=== PATIENT | male | born 1965 | race African-American/Black ===

== ENCOUNTER 2020-02-07 13:36 | Outpatient (REF) | payer OTHER, SELFPAY ==
[2020-02-07 16:40] LABS: MANUAL DIFF FLAG NO
[2020-02-07 16:44] LABS: Basophils Percent Auto 0.7 % (0-2); Eosinophils Absolute Auto 0.1 X10*3/uL (0.0-0.4); Eosinophils Percent Auto 1.9 % (0-4); Hematocrit 45.9 % (42-52); Hemoglobin 15.4 g/dl (14.0-18.0); Imm Gran Abs Auto 0.01 X10*3/uL (0.00-0.03); Imm Gran Pct Auto 0.2 % (0.0-0.4); Lymphocytes Absolute Auto 1.6 X10*3/uL (1.2-4.9); Lymphocytes Percent Auto 37.9 % (20-40); Mean Corpuscular HGB Conc 33.6 g/dl (31.0-36.0); Mean Corpuscular Volume 92.5 fL (80-98); Monocytes Absolute Auto 0.3 X10*3/uL (0.1-1.2); Monocytes Percent Auto 7.6 % (2-11); Neutrophils Absolute Auto 2.2 X10*3/uL (2.0-8.3); Neutrophils Percent Auto 51.7 % (45-73); Platelet Count 211 X10*3/uL (160-400); Red Blood Count 4.96 X10*6/uL (4.60-5.80); Red Cell Distribution Width 12.1 % (11.0-16.0); White Blood Count 4.2 X10*3/uL (4.8-10.8)
[2020-02-07 17:29] LABS: TSH reflex Free T4 1.14 mIU/mL (0.32-4.0)
== END 2020-02-07 13:37 | disposition home or self-care (01) ==
LOC: HO.HMGCLDS 13:36
PROVIDERS: PCP Internal Medicine; Visit Provider Internal Medicine
DX: G43.909 Migraine, unspecified, not intractable, without status migrainosus (principal)
CPT/HCPCS: 36415; 84443; 85025

== ENCOUNTER 2021-04-16 10:56 | Outpatient (REF) | payer OTHER, SELFPAY ==
[2021-04-16 14:31] LABS: Alanine Aminotransferase 47 U/L (0-40); Anion Gap 12 (12-20); Aspartate Amino Transferase 26 U/L (5-37); Blood Urea Nitrogen 10 mg/dL (9-16); Calcium 9.6 mg/dL (8.4-10.2); Carbon Dioxide 27 mmol/L (22-29); Chloride 107 mmol/L (96-108); Cholesterol 238 mg/dL; Estimated Glomerular Filt Rate > 60; Glucose Fasting 93 mg/dL (60-99); HDL Cholesterol 40 mg/dL; LDL Cholesterol Calculated 175 mg/dl; Potassium 4.3 mmol/L (3.3-5.1); Sodium 142 mmol/L (135-145); Triglycerides 119 mg/dL
[2021-04-16 14:48] LABS: PSA,Total (Free>4and<10) 0.93 ng/mL (0.00-4.00)
== END 2021-04-16 10:57 | disposition home or self-care (01) ==
LOC: HO.HMGCLDS 10:56
PROVIDERS: PCP Internal Medicine; Visit Provider Internal Medicine
DX: Z00.00 Encounter for general adult medical examination without abnormal findings (principal); E78.5 Hyperlipidemia, unspecified; Z12.5 Encounter for screening for malignant neoplasm of prostate
CPT/HCPCS: 36415; 80048; 80061; 84153; 84450; 84460

== ENCOUNTER 2021-09-13 09:21 | Outpatient (REF) | payer OTHER, SELFPAY ==
[2021-09-13 12:07] LABS: Alanine Aminotransferase 55 U/L (0-40); Aspartate Amino Transferase 36 U/L (5-37); Cholesterol 217 mg/dL; HDL Cholesterol 43 mg/dL; LDL Cholesterol Calculated 162 mg/dl; Triglycerides 62 mg/dL
== END 2021-09-13 09:22 | disposition home or self-care (01) ==
LOC: HO.HMGCLDS 09:21
PROVIDERS: PCP Internal Medicine; Visit Provider Internal Medicine
DX: E78.5 Hyperlipidemia, unspecified (principal)
CPT/HCPCS: 36415; 80061; 84450; 84460

== ENCOUNTER 2022-01-03 09:30 | Outpatient (REF) | payer OTHER, SELFPAY ==
[2022-01-03 11:56] LABS: Alanine Aminotransferase 42 U/L (0-40); Aspartate Amino Transferase 39 U/L (5-37); Cholesterol 201 mg/dL; HDL Cholesterol 39 mg/dL; LDL Cholesterol Calculated 151 mg/dl; Triglycerides 57 mg/dL
== END 2022-01-03 09:31 | disposition home or self-care (01) ==
LOC: HO.HMGCLDS 09:30
PROVIDERS: PCP Internal Medicine; Visit Provider Internal Medicine
DX: E78.5 Hyperlipidemia, unspecified (principal)
CPT/HCPCS: 36415; 80061; 84450; 84460

== ENCOUNTER 2022-06-07 09:32 | Outpatient (REF) | payer OTHER, SELFPAY ==
[2022-06-07 10:47] LABS: Alanine Aminotransferase 34 U/L (0-40); Anion Gap 12 (12-20); Aspartate Amino Transferase 26 U/L (5-37); Blood Urea Nitrogen 8 mg/dL (9-16); Calcium 9.4 mg/dL (8.4-10.2); Carbon Dioxide 27 mmol/L (22-29); Chloride 108 mmol/L (96-108); Cholesterol 210 mg/dL; Estimated Glomerular Filt Rate > 60; Glucose Fasting 93 mg/dL (60-99); HDL Cholesterol 46 mg/dL; LDL Cholesterol Calculated 153 mg/dl; Potassium 4.4 mmol/L (3.3-5.1); Sodium 143 mmol/L (135-145); Triglycerides 59 mg/dL
[2022-06-07 10:56] LABS: PSA,Total (Free>4and<10) 1.17 ng/mL (0.00-4.00); Vitamin D 25-OH Total 14.2 ng/mL (>30)
== END 2022-06-07 09:33 | disposition home or self-care (01) ==
LOC: HO.LAB 09:32
PROVIDERS: PCP Internal Medicine; Visit Provider Internal Medicine
DX: Z00.01 Encounter for general adult medical examination with abnormal findings (principal); E78.5 Hyperlipidemia, unspecified; J30.2 Other seasonal allergic rhinitis; Z12.5 Encounter for screening for malignant neoplasm of prostate; Z79.899 Other long term (current) drug therapy
CPT/HCPCS: 36415; 80048; 80061; 82306; 84153; 84450; 84460

== ENCOUNTER 2022-07-04 09:18 | Outpatient (REF) | payer OTHER, SELFPAY ==
[2022-07-04 09:46] LABS: MANUAL DIFF FLAG NO
[2022-07-04 11:02] LABS: Basophils Percent Auto 0.8 % (0-2); Eosinophils Absolute Auto 0.1 X10*3/uL (0.0-0.4); Eosinophils Percent Auto 2.3 % (0-4); Hematocrit 48.1 % (42.0-52.0); Imm Gran Abs Auto 0.01 X10*3/uL (0.00-0.03); Imm Gran Pct Auto 0.2 % (0.0-0.4); Lymphocytes Absolute Auto 1.9 X10*3/uL (1.2-4.9); Lymphocytes Percent Auto 35.8 % (20-40); Mean Corpuscular HGB Conc 33.3 g/dl (31.0-36.0); Mean Corpuscular Hemoglobin 30.9 pg (27.0-33.0); Monocytes Absolute Auto 0.5 X10*3/uL (0.1-1.2); Monocytes Percent Auto 8.9 % (2-11); Neutrophils Absolute Auto 2.8 x10*3/uL (2.0-8.3); Platelet Count 197 X10*3/uL (160-400); Red Blood Count 5.17 X10*6/uL (4.60-5.80); Red Cell Distribution Width 12.5 % (11.0-16.0); White Blood Count 5.3 X10*3/uL (4.8-10.8)
[2022-07-04 11:30] LABS: Anion Gap 13 (12-20); Blood Urea Nitrogen 14 mg/dL (9-16); Calcium 8.9 mg/dL (8.4-10.2); Carbon Dioxide 26 mmol/L (22-29); Chloride 106 mmol/L (96-108); Cholesterol 189 mg/dL; Estimated Glomerular Filt Rate > 60; Glucose Fasting 96 mg/dL (60-99); HDL Cholesterol 38 mg/dL; LDL Cholesterol Calculated 134 mg/dl; Sodium 140 mmol/L (135-145); Triglycerides 86 mg/dL
[2022-07-04 11:35] LABS: Vitamin D 25-OH Total 35.3 ng/mL (>30)
== END 2022-07-04 09:19 | disposition home or self-care (01) ==
LOC: HO.LAB 09:18
PROVIDERS: PCP Internal Medicine; Visit Provider Internal Medicine
DX: R42 Dizziness and giddiness (principal); E78.5 Hyperlipidemia, unspecified; E55.9 Vitamin D deficiency, unspecified
CPT/HCPCS: 36415; 80048; 80061; 82306; 84443; 85025

== ENCOUNTER → 2022-07-07 10:41 | Outpatient (BNVA) | payer OTHER, SELFPAY | PROVIDERS: PCP Internal Medicine; Referring Provider Internal Medicine; Visit Provider Physician Assistant | DX: Z13.89 Encounter for screening for other disorder (principal) ==

== ENCOUNTER 2022-10-17 11:24 | Day surgery (SDC) | payer OTHER, SELFPAY ==
[2022-10-15 15:47] VITALS: BMI 27.7
--- NOTE | 2022-10-16 10:08 | P.CONAN_ITS ---
HPI - Anesthesia Eval Consult details Narrative: 56yo M for Upper Endoscopy [facility] Active Problems Active Problems: All Active Problems (Updated 07/03/22 @ 12:29 by Minerva Guerrero MD) Acquired deviated nasal septum (Acute) History of Helicobacter pylori infection (Acute) Hx of gastritis (Acute) Chronic gastroesophageal reflux disease (Acute) Dizziness (Acute) Vitamin D deficiency (Acute) Lesion of skin of scalp (Acute) Hearing loss in right ear (Acute) Decreased hearing of right ear (Acute) Dyslipidemia (Acute) Seasonal allergies (Acute) Past Medical History Medical History Acquired deviated nasal septum Chronic gastroesophageal reflux disease Decreased hearing of right ear Dizziness Dyslipidemia Hearing loss in right ear History of Helicobacter pylori infection Hx of gastritis Lesion of skin of scalp Migraine Seasonal allergies Vitamin D deficiency Family History Family History Father Medical history non-contributory Mother Medical history non-contributory Surgical History Surgical History Femoral fracture History of colonoscopy History of esophagogastroduodenoscopy (EGD) Social History Social History Housing: House Alcohol intake: never Patient Tobacco Use Status: Former Tobacco user Years Smoked: 15 yrs e-Cigarette/Vaping Use: Never Used service: No Current occupational status: employed Current occupation: carpentry Cognitive needs: No Hearing needs: No Vision needs: No Meds Allergies Allergy/AdvReac Type Severity Reaction Status Date / Time No Known Allergies Allergy Verified 07/09/22 21:45 Exam Exam Date and Time: October 16, 2022 1008 Height,Weight and Vital Signs: Height 5 ft 8 in Weight 82.554 kg Pertinent Lab Results Pertinent Lab Results: Laboratory Tests 07/04/22 07/04/22 09:45 09:45 WBC 5.3 Hgb 16.0 Hct 48.1 Plt Count 197 Sodium 140 Potassium 5.0 Chloride 106 Carbon Dioxide 26 BUN 14 Creatinine 1.07 Assessment and Plan Assessment Anesthesia Assessment: Chart Reviewed
[2022-10-17 11:46] VITALS: BP 116/69; PULSE 51; RESP 18; TEMP 36.6; O2SAT 98
--- NOTE | 2022-10-17 11:54 | MHC.SHP ---
Pre-Procedural Eval Section A Date of Service: 10/17/22 Section B Chief Complaint: GERD, abdominal bloating Relevant Family History (Specify if Yes): No Relevant Social History: Tobacco Use (former smoker) Present Medications: see Short Stay Collaborative assessment Medical History: Significant History (Chronic gastroesophageal reflux disease Decreased hearing of right ear Dizziness Dyslipidemia Hearing loss in right ear History of Helicobacter pylori infection Hx of gastritis Lesion of skin of scalp Migraine) History of Previous Operations: Relevant previous surgery/procedure and date(s) (Femoral fracture History of colonoscopy History of esophagogastroduodenoscopy (EGD)) Allergies: Allergies Allergy/AdvReac Type Severity Reaction Status Date / Time No Known Allergies Allergy Verified 10/17/22 11:47 Review of Systems Sugical H&P ROS: Negative: Constitution, Cardiovascular, Respiratory and Gastrointestinal Exam Surgical H&P Exam: Normal: Heart, Normal: Lungs, Normal: Extremities and Normal: Abdomen Plan Diagnosis/Plan: Change (proceed with EGD) I have reviewed the history and physical and performed a pertinent physical examination on my patient. No changes have occurred unless specified. Time Spent With Patient Time: Total time managing care of this patient today ____ minutes.
--- NOTE | 2022-10-17 12:00 | HO.ANESPROP2 ---
[facility] Active Problems Active Problems: All Active Problems (Updated 07/03/22 @ 12:29 by Minerva Guerrero MD) Acquired deviated nasal septum (Acute) History of Helicobacter pylori infection (Acute) Hx of gastritis (Acute) Chronic gastroesophageal reflux disease (Acute) Dizziness (Acute) Vitamin D deficiency (Acute) Lesion of skin of scalp (Acute) Hearing loss in right ear (Acute) Decreased hearing of right ear (Acute) Dyslipidemia (Acute) Seasonal allergies (Acute) Past Medical History Medical History Acquired deviated nasal septum Chronic gastroesophageal reflux disease Decreased hearing of right ear Dizziness Dyslipidemia Hearing loss in right ear History of Helicobacter pylori infection Hx of gastritis Lesion of skin of scalp Migraine Seasonal allergies Vitamin D deficiency Family History Family History Father Medical history non-contributory Mother Medical history non-contributory Family history of problems with anesthesia: No Surgical History Surgical History Femoral fracture History of colonoscopy History of esophagogastroduodenoscopy (EGD) History of Problems with Anesthesia: No Social History Social History Housing: House Alcohol intake: never Patient Tobacco Use Status: Former Tobacco user Years Smoked: 15 yrs e-Cigarette/Vaping Use: Never Used Are you DNR?: No Advance Directives: No Advance Directives Information Provided: Yes Nutrition Risks: No Nutritional Risk service: No Current occupational status: employed Current occupation: carpentry Cognitive needs: No Hearing needs: No Vision needs: No Meds Allergies Allergy/AdvReac Type Severity Reaction Status Date / Time No Known Allergies Allergy Verified 10/17/22 11:47 Active Medications: Current Medications Lactated Ringer's (Lr) 1,000 mls @ 100 mls/hr IVCONT .Q10H ROCHELLE Last Admin: 10/17/22 11:38 Dose: 100 mls/hr Ondansetron HCl (Ondansetron Hcl 4 Mg/2 Ml Vial) 4 mg IVPUSH ONCE PRN PRN Reason: Nausea and Vomiting Home Medications Medication Instructions Recorded Confirmed Last Taken Type cholecalciferol (vitamin D3) 1,250 1,250 mcg PO QWEEK 10/17/22 10/17/22 Unknown History mcg (50,000 unit) capsule Exam Exam Date and Time: October 17, [id number] Height,Weight and Vital Signs: Height 5 ft 8 in Weight 82.554 kg Last Vital Signs Temp 97.8 F 10/17/22 11:46 Pulse 51 10/17/22 11:46 Resp 18 10/17/22 11:46 BP 116/69 10/17/22 11:46 Pulse Ox 98 10/17/22 11:46 O2 Del Method Room Air 10/17/22 11:46 Airway Mallampati Class: I TM Dist: >3cm Neck ROM: Full Loose/Missing/Broken Teeth: No Heart: rrr Lungs: clear Assessment and Plan Final Anesthetic Review Family History of Problems with Anesthesia: No History of Problems with Anesthesia: No ASA Class: II Final Preanesthetic Review: No Changes in Pt Med Stat, Meds/Allgs Chart Reviewed, Consent Obtained/Reviewed and Anes Risks/Benef Reviewed Patient Risk: Low Procedure Risk: Low Anesthetic Plan Anesthetic Plan: MAC: Disposition: Standard PACU
--- NOTE | 2022-10-17 12:08 | W.PM.OPN ---
Operative Note Operative Note Date of Service: 10/17/22 Narrative: FLEXIBLE TRANSORAL UPPER GASTROINTESTINAL ENDOSCOPY WITH BIOPSIES Pre-op diagnosis: GERD, abdominal bloating, hx of H Pylori infection Post-op diagnosis: GERD, gastritis Endoscopist:? Cindy Ruvalcaba MD Anesthesia:?MAC Consent: Indications for the procedure and potential complications of bleeding, perforation, reaction to medications and missed diagnosis were discussed with the patient and informed consent was obtained. Instrument: Olympus GIF H 190 mid size upper endoscope Monitoring: Vital signs and clinical assessment, continuous EKG monitoring, Pulse oximetry, Carbon Dioxide monitoring and blood pressure monitoring were done throughout the procedure. Procedure: The patient was placed in the left lateral decubitis position and pre-procedure medications were administered and a bite block was placed. The endoscope was inserted into the mouth and advanced under direct vision to the third part of duodenum. A careful inspection was made as the upper endoscope was withdrawn including a retroflexed examination of the proximal stomach; Findings and interventions are described below. Findings: Larynx: Normal Esophagus: GE junction at 36 cms. One 5 mm healing erosion at GE junction. No Boyce's. Stomach: Moderate diffuse gastric erythema with nodular appearing gastric mucosa in the gastric body. Biopsies were obtained. Grade 2 flap valve on retroflexed examination of the cardia. Duodenum: Normal bulb and descending duodenum. Biopsies were obtained from 3rd part of the duodenum to check for H Pylori Intervention: Biopsies as noted above Impression and Post Procedure Diagnosis: Endoscopy Findings: ESOPHAGUS: One 5 mm healing erosion at GE junction. No Boyce's. STOMACH: Moderate diffuse gastric erythema with nodular appearing gastric mucosa in the gastric body. DUODENUM: Normal - biopsied to check for celiac sprue Plan: Await pathology results Patient has an appointment on 10/27/22 in the GI Clinic with SIGIFREDO Roca. Above findings were reviewed with the patient and GERD handout was given in the discharge area BIOPSIES SHOWED: A.? Small bowel, biopsy:? Small bowel mucosa with congestion and predominantly preserved villi; no evidence of celiac disease.? B.? Gastric antrum, biopsy:? Gastric antral mucosa with minimal chronic inactive gastritis; negative for intestinal metaplasia and dysplasia (see comment).? C.? Gastric antrum, biopsy:? Gastric antral and body mucosa with minimal chronic inactive gastritis; negative for intestinal metaplasia and dysplasia (see comment).? Comment: (B and C): H pylori stains: Negative
[2022-10-17 12:39] VITALS: BP 89/50; PULSE 53; RESP 20; TEMP 36.2; O2SAT 94
[2022-10-17 12:54] VITALS: BP 106/63; PULSE 50; RESP 16; TEMP 36.3; O2SAT 95
[2022-10-17 13:09] VITALS: BP 106/63; PULSE 50; RESP 20; TEMP 36.7; O2SAT 95
== END 2022-10-17 14:00 | disposition home or self-care (01) ==
PROVIDERS: PCP Internal Medicine; Visit Provider Internal Medicine Gastroenterology
PROC: 0DJ08ZZ Inspection of Upper Intestinal Tract, Via Natural or Artificial Opening Endoscopic (ICD-10-PCS; CPT 43235; principal; 2022-10-17 13:00)
DX: K21.9 Gastro-esophageal reflux disease without esophagitis (principal); K29.50 Unspecified chronic gastritis without bleeding; Z86.19 Personal history of other infectious and parasitic diseases; R14.0 Abdominal distension (gaseous); H91.91 Unspecified hearing loss, right ear; E78.5 Hyperlipidemia, unspecified; E55.9 Vitamin D deficiency, unspecified; G43.909 Migraine, unspecified, not intractable, without status migrainosus; J30.2 Other seasonal allergic rhinitis; Z79.899 Other long term (current) drug therapy; Z87.891 Personal history of nicotine dependence
CPT/HCPCS: 43239; 88305; 88342

== ENCOUNTER → 2022-10-17 11:24 | Outpatient (BNV) | payer OTHER, SELFPAY | PROVIDERS: PCP Internal Medicine; Visit Provider Internal Medicine Gastroenterology | DX: K29.70 Gastritis, unspecified, without bleeding (principal) | CPT/HCPCS: 43239 ==

== ENCOUNTER 2022-12-02 12:48 | Outpatient (AMB) | payer OTHER, SELFPAY ==
[2022-12-02 12:50] VITALS: BP 102/60; PULSE 45; O2SAT 99; BMI 28.9
--- NOTE | 2022-12-02 12:50 | MHC.PC.OV ---
Vital Signs 12/02/22 12:50 Height 5 ft 8 in Weight 190 lb BMI 28.9 BP 102/60 Blood Pressure Location Lt brachial Position Sitting Pulse 45 L Pulse Source Pulse Oximeter Pulse Oximetry (%) 99 Intake Visit Reasons: confused regarding results on EGD Intake Note: pt is here for EGD results Visual Basic Developer Required: No Accompanied by: Self / Same As Patient Allergies No Known Allergies Allergy (Verified 12/02/22 13:38) Medication List - Last Reconciled 12/02/22 by Minerva Guerrero MD cetirizine 10 mg PO DAILY cholecalciferol (vitamin D3) 50 mcg PO DAILY fluticasone propionate 50 mcg/actuation 1 spray intranasal DAILY Tobacco use date assessed: 05/29/22 Dental Screening Dental Screen Date: 12/02/22 Did you have a dental visit in the last 12 months?: Yes Did you have a dental problem in the last 6 months where you did not have access to dental care?: No Was dental information given to patient?: Patient has dentist HPI confused regarding results on EGD HPI Details 57-year-old male here today to discuss results of recent EGD done by Dr. Ruvalcaba, done 10/17/2022. Patient states that nobody told him about the results of his EGD, not happy with his recent GI encounter, requested a 2nd opinion with another GI doctor, and appointments already scheduled for him to see Dr. Walsh in January 2023. He has been having epigastric pain whenever he eats bread, even just 2 slices but does not get similar reaction when he eats pasta or pizza dough. He states that his epigastric pain has resolved ever since he stopped having bread in his diet. His EGD pathology findings showed ?Immunostains for H. pylori are negative, small bowel, biopsy:? Small bowel mucosa with congestion and predominantly preserved villi; no evidence of celiac disease, Gastric antrum, biopsy:? Gastric antral mucosa with minimal chronic inactive gastritis; negative for intestinal metaplasia and dysplasia . He currently uses symptomatic and does not take any medication for heartburn at present time. [facility] Medical History (Updated 12/02/22 @ 17:36 by Minerva Guerrero MD) Acquired deviated nasal septum Dyslipidemia Gluten intolerance Hearing loss in right ear History of gastroesophageal reflux (GERD) History of Helicobacter pylori infection Hx of gastritis Seasonal allergies Vitamin D deficiency Surgical History Femoral fracture History of colonoscopy History of esophagogastroduodenoscopy (EGD) Family History Father Medical history non-contributory Mother Medical history non-contributory Social History Housing: House Alcohol intake: never Patient Tobacco Use Status: Former Tobacco user Years Smoked: 15 yrs e-Cigarette/Vaping Use: Never Used service: No Current occupational status: employed Current occupation: [employer] Cognitive needs: No Hearing needs: No Vision needs: No Questionnaire Thrive Questionnaire Date Thrive assessed: 05/29/22 GUERO-7 AMB Questionnaire GUERO-7 Date GUERO - 7 assessed: 05/29/22 Source: Developed by Drs. Filemon Steele, Vijaya Devi, Merrill Raines and colleagues, with an educational gurinder from [employer]. Review of Systems Const Denies anorexia, Denies body aches, Denies fatigue, Denies poor appetite and Denies weight loss ENT Reports no additional complaints, Denies dysphagia, Denies hoarseness and Denies odynophagia Card Denies chest pain, Denies chest pain with activity, Denies irregular heart rhythm, Denies lightheadedness, Denies dyspnea and Denies dyspnea on exertion Resp Denies dyspnea, Denies dyspnea on exertion and Denies wheezing GI Denies abdominal pain, Denies melena, Denies bloating, Denies hematochezia, Denies change in bowel habits, Denies change in stool character, Denies dysphagia, Denies dyspepsia, Denies heartburn, Denies nausea and Denies odynophagia Endo Denies fatigue Aller/Immun Denies wheezing Physical exam (Primary Care) Vital Signs: Last Vital Signs Pulse 45 L 12/02/22 12:50 BP 102/60 12/02/22 12:50 Pulse Ox 99 12/02/22 12:50 BMI result Body Mass Index 28.9 Tobacco/Smoking Status: Tobacco use Status Tobacco use date assessed 05/29/22 12/02/22 12:51 Patient Tobacco Use Status Former Tobacco user 12/02/22 12:51 e-Cigarette/Vaping Use Never Used 12/02/22 12:51 Thrive Assessment: Date of Thrive Assessment Date Thrive assessed 05/29/22 12/02/22 12:51 Const Other: Alert oriented x3 no acute distress noted ambulatory normal gait Orientation/consciousness: patient oriented x3 HENMT Face and sinus: Yes face symmetric Mouth: Normal oral and palatal mucosa present and moist mucous membranes Eyes General: appearance normal, both eyes and all related structures Neck Neck: Yes full ROM, Yes no lymphadenopathy and Yes supple Resp Auscultation: clear to auscultation bilaterally Cardio Rhythm: regular rhythm Heart sounds: S1 normal heart sound present and S2 normal heart sound present GI Palpation (GI): Soft to palpation, nontender, no guarding and no masses Skin General skin exam: no rashes or lesions noted Neuro General: patient oriented x3, gait normal, tone normal, moves all extremities, Normal light touch and pain sensation and no focal motor deficits Extrem General: Yes normal to inspection, Yes full ROM, Yes no joint enlargement, Yes no pedal edema and Yes normal gait Assessment and Plan Assessment & Plan (1) Gluten intolerance: Code(s): K90.41 - Non-celiac gluten sensitivity Plan: Patient has been avoiding eating bread, but able to eat pasta and pizza dough. Currently asymptomatic has an appointment for a 2nd opinion with Dr. Luke son scheduled for January 2023 (2) Hx of gastritis: Code(s): Z87.19 - Personal history of other diseases of the digestive system Plan: Discussed results of recent EGD, patient currently asymptomatic, avoiding eating bread Coding Level of Care Code Est Pt Level 3 (15282) Diagnoses Gluten intolerance K90.41 Hx of gastritis Z87.19
== END 2022-12-02 13:58 | disposition home or self-care (01) ==
PROVIDERS: PCP Internal Medicine; Visit Provider Internal Medicine
DX: K90.41 Non-celiac gluten sensitivity (principal); Z87.19 Personal history of other diseases of the digestive system
CPT/HCPCS: 99213

== ENCOUNTER 2023-02-06 | Outpatient (REF) | payer OTHER, SELFPAY ==
[2023-02-11 17:15] LABS: H Pylori Breath Test Negative (Negative)
== END 2023-02-06 00:01 | disposition home or self-care (01) ==
LOC: HO.LNP
PROVIDERS: Internal Medicine Gastroenterology; Visit Provider Physician Assistant
DX: Z87.19 Personal history of other diseases of the digestive system (principal)
CPT/HCPCS: 83013

== ENCOUNTER 2023-02-06 09:46 | Outpatient (AMB) | payer OTHER, SELFPAY ==
[2023-02-06 10:02] VITALS: BP 117/72; PULSE 42; BMI 25.5
--- NOTE | 2023-02-06 10:02 | MHC.OFFVIS ---
Intake Vital Signs 02/06/23 10:02 Height 5 ft 8 in Weight 167 lb 8.821 oz BMI 25.5 BP 117/72 Blood Pressure Location Lt brachial Position Sitting Pulse 42 L Intake Visit Reasons: second opinion/ [place] patient Intake Note: Ulises presents in the office as a follow up for a 2nd opinion. CC: He states that he is feeling okay today. Staining Machine Operator Required: No Allergies No Known Allergies Allergy (Verified 02/06/23 10:02) HPI second opinion/ [place] patient HPI Details 57-year-old male being seen for f/u RECAP: He had an EGD at [facility]- had bacteria-treated- back then about 5 years ago rept EGD 10/2022--- gastritis-inactive INTERIM: He has early satiety, fullness, discomfort, tiredness and weakness at times he has hungery, eats small amounts he has heart burn hasn;t taken PPI No nausea or vomiting, no fever chills unsure if snores but does get morning headaches no nsiad, or alcohol use EXAM: GENERAL: The patient is well developed and nontoxic. VITAL SIGNS:see workflow HEENT: Nonicteric sclerae, PERRLA, EOMI. Oropharynx clear. Moist mucous membranes. Conjunctivae appear well perfused. No thyroid mass. CHEST: Chest wall is nontender. HEART: Regular rate and rhythm without murmurs. LUNGS: Clear to auscultation bilaterally. ABDOMEN: Soft, positive bowel sounds, nontender, no organomegaly.no flank tenderness SKIN: No rash, no excessive bruising, petechiae, or purpura. NEUROLOGIC: Cranial nerves II-XII intact without motor/sensory deficit. A/P: 1/ Satiety, fullness, fatigue, ? due to gastroparesis, functional dyspepsia, H pylori, ?underlying JUAN PLAN: 1/ H pylori test 2/ if neg then GES 3/ consider sleep study if ongoing sx [facility] Medical History History of gastroesophageal reflux (GERD) Gluten intolerance Acquired deviated nasal septum History of Helicobacter pylori infection Hx of gastritis Vitamin D deficiency Hearing loss in right ear Dyslipidemia Seasonal allergies Surgical History History of esophagogastroduodenoscopy (EGD) History of colonoscopy Femoral fracture Family History Father Medical history non-contributory Mother Medical history non-contributory Social History Housing: House Alcohol intake: never Patient Tobacco Use Status: Former Tobacco user Years Smoked: 15 yrs e-Cigarette/Vaping Use: Never Used service: No Current occupational status: employed Current occupation: [employer] Cognitive needs: No Hearing needs: No Vision needs: No Physical Exam Vital Signs: BMI result Body Mass Index 25.5 Assessment & Plan Assessment & Plan (1) Early satiety: Code(s): R68.81 - Early satiety Coding Level of Care Code Est Pt Level 3 (45248) Diagnoses Early satiety R68.81
== END 2023-02-06 10:44 | disposition home or self-care (01) ==
PROVIDERS: PCP Internal Medicine; Visit Provider Internal Medicine Gastroenterology
DX: R68.81 Early satiety (principal)
CPT/HCPCS: 99213

== ENCOUNTER → 2023-02-06 09:46 | Outpatient (BNVA) | payer OTHER, SELFPAY | PROVIDERS: PCP Internal Medicine; Visit Provider Internal Medicine Gastroenterology ==

== ENCOUNTER → 2023-04-08 08:21 | Outpatient (REF) | payer OTHER, SELFPAY ==
--- NOTE | ~2023-04-08 | NM_ITS ---
EXAMINATION: NM RADIONUCLIDE SOLID FOOD GASTRIC EMPTYING 4-HOUR STUDY CLINICAL INFORMATION: Early satiety. COMPARISON: None TECHNIQUE: A standard meal consisting of 4 oz of Egg Beaters brand tagged with 950 microcuries Tc-99m Sulfur Colloid, 8 oz water and 2 slices of toast with jelly was administered orally to the patient. Images were obtained using a dual head gamma camera in the anterior and posterior projections over of the stomach immediately post ingestion and at hourly intervals up to 4 hours post ingestion. The anterior and posterior counts at each time interval were averaged using the geometric mean and expressed as percentage of the immediate post ingestion counts. FINDINGS: There is good visualization of activity in the stomach immediately post ingestion. As the study progresses, there is good clearance of activity from the stomach and visualization of progressively increasing small bowel activity. By the end of the study, there is almost no retention noted in the stomach. Retention in the stomach at each time interval was: 1 hour 71% (normal 37%-90%) 2 hours 26% (normal 30%-60%) 3 hours 5% 4 hours calculation was not performed since only 5% retention was noted at 3 hours interval. NM/NM gastric emptying study IMPRESSION: Normal 4-hour solid food gastric emptying study. For solid meal, rapid gastric emptying is less than 30% at 60 minutes. Delayed gastric emptying criteria is more than 60% remaining at 120 minutes or more than 10% at 240 minutes. The 4-hour value is the best discriminator of a normal or abnormal result). Gastric emptying study grading per JNMT Consensus Recommendations in 2008 (https://tech.snmjournals.org/content/36/1/44) Grade 1 (mild retention): 11-20% at 4h Grade 2 (moderate retention): 21-35% at 4h Grade 3 (severe retention): 36-50% at 4h Grade 4 (very severe retention): >50% retention at 4h
== END ==
LOC: HO.NUCMED 08:21
PROVIDERS: PCP Internal Medicine; Visit Provider Internal Medicine Gastroenterology
DX: R68.81 Early satiety (principal)
CPT/HCPCS: 78264; A9541

== ENCOUNTER 2023-08-07 09:32 | Outpatient (AMB) | payer OTHER, SELFPAY ==
--- NOTE | 2023-08-07 09:43 | A.OFFVIS_ITS ---
Vital Signs 08/07/23 09:46 Height 5 ft 8 in Weight 175 lb 9.191 oz BMI 26.7 BP 129/76 Blood Pressure Location Lt brachial Position Sitting Pulse 42 L Intake Visit Reasons: 6 month follow up Intake Note: Ulises presents in the office as a 6 month follow up. CC: No concerns today just a follow up. Allergies No Known Allergies Allergy (Verified 08/07/23 09:46) HPI HPI 6 month follow up: Details: 57-year-old male being seen for f/u RECAP: He had an EGD at [facility]- had bacteria-treated- back then about 5 years ago rept EGD 10/2022--- gastritis-inactive GES was normal H pylori was negative INTERIM: He still has early satiety, fullness, discomfort, tiredness and weakness at times he still gets hungry, eats small amounts he has heart burn only if eats spicy hasn't used taken PPI No nausea or vomiting, does get morning headaches if east beef day before no nsiad, or alcohol use EXAM: GENERAL: The patient is well developed and nontoxic. VITAL SIGNS:see workflow HEENT: Nonicteric sclerae, PERRLA, EOMI. Oropharynx clear. Moist mucous membranes. Conjunctivae appear well perfused. No thyroid mass. CHEST: Chest wall is nontender. HEART: Regular rate and rhythm without murmurs. LUNGS: Clear to auscultation bilaterally. ABDOMEN: Soft, positive bowel sounds, nontender, no organomegaly.no flank tenderness SKIN: No rash, no excessive bruising, petechiae, or purpura. NEUROLOGIC: Cranial nerves II-XII intact without motor/sensory deficit. A/P: 1/ Satiety, fullness, fatigue, suspected 2/2 functional dyspepsia, ?underlying JUAN PLAN: 1/ rast test, and alpha gal 2/ PPI trial 3/ hold on juan testing for now [facility] Medical History History of gastroesophageal reflux (GERD) Gluten intolerance Acquired deviated nasal septum History of Helicobacter pylori infection Hx of gastritis Vitamin D deficiency Hearing loss in right ear Dyslipidemia Seasonal allergies Surgical History History of esophagogastroduodenoscopy (EGD) History of colonoscopy Femoral fracture Family History Father Medical history non-contributory Mother Medical history non-contributory Social History Housing: House Alcohol intake: never Patient Tobacco Use Status: Former Tobacco user Years Smoked: 15 yrs e-Cigarette/Vaping Use: Never Used service: No Current occupational status: employed Current occupation: [employer] Cognitive needs: No Hearing needs: No Vision needs: No Physical Exam Vital Signs: Last Vital Signs Pulse 42 L 08/07/23 09:46 BP 129/76 08/07/23 09:46 BMI result Body Mass Index 26.7 Assessment & Plan Assessment & Plan (1) Food allergy: Code(s): Z91.018 - Allergy to other foods Category: Medical Plan: see above Orders: Orders Other Ref Test - Misc Today Z91.018 - Allergy to other foods Transglutaminase Ab IgG Today G89.29 - Other chronic pain, R10.33 - Periumbilical pain Rast Allergen Today Z91.018 - Allergy to other foods Medications: New pantoprazole 40 mg PO DAILY 90 tabs 2RF Coding Level of Care Code Est Pt Level 3 (55691) Diagnoses Food allergy Z91.018
[2023-08-07 09:46] VITALS: BP 129/76; PULSE 42; BMI 26.7
== END 2023-08-07 10:33 | disposition home or self-care (01) ==
PROVIDERS: PCP Internal Medicine; Visit Provider Internal Medicine Gastroenterology
DX: Z91.018 Allergy to other foods (principal)
CPT/HCPCS: 99213

== ENCOUNTER → 2023-08-07 09:32 | Outpatient (BNVA) | payer OTHER, SELFPAY | PROVIDERS: PCP Internal Medicine; Visit Provider Internal Medicine Gastroenterology ==

== ENCOUNTER 2023-08-21 10:01 | Outpatient (REF) | payer OTHER, SELFPAY ==
[2023-08-26 07:08] LABS: Transglutaminase Ab IgG <1.0 U/mL
== END 2023-08-21 10:02 | disposition home or self-care (01) ==
LOC: HO.LAB 10:01
PROVIDERS: PCP Internal Medicine; Visit Provider Internal Medicine Gastroenterology
DX: R10.33 Periumbilical pain (principal); G89.29 Other chronic pain; Z91.018 Allergy to other foods
CPT/HCPCS: 36415; 86003; 86364

== ENCOUNTER 2023-09-10 13:00 | Outpatient (AMB) | payer OTHER, SELFPAY ==
--- NOTE | 2023-09-10 13:01 | A.OFFPC_ITS ---
Vital Signs 09/10/23 13:03 Height 5 ft 8 in Weight 179 lb BMI 27.2 BP 110/70 Blood Pressure Location Rt brachial Position Sitting Pulse 63 Pulse Source Pulse Oximeter Pulse Oximetry (%) 97 Oxygen Delivery Method Room Air Intake Visit Reasons: Physical exam Intake Note: Pt is here today for his PE: colonoscopy 09/04/17 Allergies No Known Allergies Allergy (Verified 09/14/23 03:09) Medication List - Last Reconciled 09/14/23 by Minerva Guerrero MD cetirizine 10 mg PO DAILY cholecalciferol (vitamin D3) 50 mcg PO DAILY fluticasone propionate 50 mcg/actuation 1 spray intranasal DAILY pantoprazole 40 mg PO DAILY Tobacco use date assessed: 09/10/23 Dental Screening Dental Screen Date: 09/10/23 Did you have a dental visit in the last 12 months?: No Was dental information given to patient?: No HPI Physical exam HPI Details 51-year-old male with gluten intolerance , dyslipidemia which is currently diet controlled, seasonal allergies, and history of gastritis, here today for his physical exam.. He has been feeling well, with no complaints at present time. Up-to-date with his screening colonoscopy, due again in 2027. [facility] Medical History History of gastroesophageal reflux (GERD) Gluten intolerance Acquired deviated nasal septum History of Helicobacter pylori infection Hx of gastritis Vitamin D deficiency Hearing loss in right ear Dyslipidemia Seasonal allergies Surgical History History of esophagogastroduodenoscopy (EGD) History of colonoscopy Femoral fracture Family History Father Medical history non-contributory Mother Medical history non-contributory Social History Housing: House Alcohol intake: never Patient Tobacco Use Status: Former Tobacco user Years Smoked: 15 yrs e-Cigarette/Vaping Use: Never Used service: No Current occupational status: employed Current occupation: carpentry Cognitive needs: No Hearing needs: No Vision needs: No Questionnaire PHQ-9 Over the last 2 weeks, how often have you been bothered by any of the following problems? 1. Little interest or pleasure in doing things: not at all 2. Feeling down, depressed, or hopeless: not at all 3. Trouble falling or staying asleep, or sleeping too much: not at all 4. Feeling tired or having little energy: not at all 5. Poor appetite or overeating: not at all 6. Feeling bad about yourself - or that you are a failure or have let yourself or your family down: not at all 7. Trouble concentrating on things, such as reading the newspaper or watching television: not at all 8. Moving or speaking so slowly that other people could have noticed. Or the opposite - being so fidgety or restless that you have been moving around a lot more than usual: not at all 9. Thoughts that you would be better off or of hurting yourself in some way: not at all Total score: 0 Depression Screening Interpretation: Negative Depression Screening Done: Yes 17312 - PHQ-9 Billing: Yes Source: Developed by Drs. Filemon Steele, Vijaya Devi, Merrill Raines and colleagues, with an educational gurinder from [employer]. Thrive Questionnaire Date Thrive assessed: 09/10/23 I am a: Patient What is your living situation today?: I have a steady place to live Within the past 12 months, did the food you bought not last and you didn't have the money to get more?: Never true Within the past 12 months, did you worry whether your food would run out before you got money to buy more?: Never true Do you have trouble paying for medicines?: No Do you have trouble getting transportation to medical appointments?: No Do you have trouble paying your heating and electricity bill?: No Do you have trouble taking care of your child, family member or friend?: No Do you have trouble with day-to-day activities such as bathing, preparing meals, shopping, managing finances, etc.?: No Are you currently unemployed and looking for a job?: No Are you interested in more education?: No THRIVE Score: 0 AUDIT C Alcohol Use Questionnaire (AUDIT-C) 1. How often do you have a drink containing alcohol?: Never Total Score: 0 GUERO-7 AMB Questionnaire GUERO-7 Date GUERO - 7 assessed: 09/10/23 Feeling nervous, anxious, or on edge: 0 = Not at all Not being able to stop or control worryin = Not at all Worrying too much about different things: 0 = Not at all Trouble relaxin = Not at all Being so restless that it is hard to sit still: 0 = Not at all Becoming easily annoyed or irritable: 0 = Not at all Feeling afraid as if something awful might happen: 0 = Not at all Total GUERO-7 score (0-4 normal; 5-9 mild; 10-14 moderate; 15-21 severe): 0 Source: Developed by Drs. Filemon Steele, Vijaya Devi, Merrill Raines and colleagues, with an educational gurinder from [employer]. Review of Systems Const Denies body aches, Denies fatigue and Denies poor appetite Eyes Details: Sees Dr. Kaitlin Prescott ENT Reports no additional complaints Card Denies chest pain, Denies chest pain with activity, Denies irregular heart rhythm, Denies lightheadedness, Denies dyspnea and Denies dyspnea on exertion Resp Denies dyspnea, Denies dyspnea on exertion and Denies wheezing GI Denies abdominal pain, Denies melena, Denies bloating, Denies hematochezia, Denies change in bowel habits and Denies heartburn Reports no additional complaints Musc Denies back pain, Denies arthralgias, Denies joint swelling and Reports stiffness Skin/Breast Denies lesions and Denies rash Neuro Reports no additional complaints Psych Reports no additional complaints Endo Denies fatigue Chris/Lymph Reports no additional complaints Aller/Immun Denies wheezing Physical exam (Primary Care) Vital Signs: Last Vital Signs Pulse 63 09/10/23 13:03 BP 110/70 09/10/23 13:03 Pulse Ox 97 09/10/23 13:03 Oxygen Delivery Method Room Air 09/10/23 13:03 BMI result Body Mass Index 27.2 Tobacco/Smoking Status: Tobacco use Status Tobacco use date assessed 09/10/23 09/10/23 13:06 Patient Tobacco Use Status Former Tobacco user 09/10/23 13:06 e-Cigarette/Vaping Use Never Used 09/10/23 13:06 PHQ-9: PHQ-9 Score PHQ-9: Total score 0 09/14/23 03:11 Depression Screening Interpretation: Negative Thrive Assessment: Date of Thrive Assessment Date Thrive assessed 09/10/23 09/10/23 13:13 Advance Care Planning discussion: Completed/Scanned Date of discussion: 09/10/23 Who was present: Patient Forms completed: Health Care Proxy Time spent: 16-45 minutes Actual minutes spent: 16 Const Other: Alert oriented x3 no acute distress noted ambulatory normal gait Orientation/consciousness: patient oriented x3 HENMT Face and sinus: Yes face symmetric Mouth: Normal oral and palatal mucosa present and moist mucous membranes Eyes General: appearance normal, both eyes and all related structures Neck Neck: Yes full ROM, Yes no lymphadenopathy and Yes supple Resp Auscultation: clear to auscultation bilaterally Cardio Rhythm: regular rhythm Heart sounds: S1 normal heart sound present and S2 normal heart sound present GI Palpation (GI): Soft to palpation, nontender, no guarding and no masses General: Yes no CVA tenderness Back/Spine/Pelvis Back: no CVA tenderness and No back tenderness Skin General skin exam: no rashes or lesions noted Neuro General: patient oriented x3, gait normal, tone normal, moves all extremities, Normal light touch and pain sensation and no focal motor deficits Extrem General: Yes normal to inspection, Yes full ROM, Yes no joint enlargement, Yes no pedal edema and Yes normal gait Psych Appearance: grossly normal and well kempt Mental Status: mental status grossly normal Speech and movement: Normal speech and movement present Affect: normal affect Assessment and Plan Assessment & Plan (1) Annual visit for general adult medical examination with abnormal findings: Code(s): Z00.01 - Encounter for general adult medical examination with abnormal findings Plan: Will check appropriate labs. Recommended dental visit every 6 months and regular eye exams, at least every 2 years. Take adequate calcium in diet and vitamin-D 3 at 2000 IU per cap once a day, in addition to weight-bearing exercises to help maintain good muscle tone and weight control. Instructed to do self testicular exam check for any mass up-to-date with his screening colono saira, due again in 2027. Has had COVID vaccines in the past but does not want to get the booster. Reminded to get his yearly flu shot, and is due for his tetanus booster (2) Vitamin D deficiency: Code(s): E55.9 - Vitamin D deficiency, unspecified Plan: Ordered vitamin-D level. Continue with cholecalciferol 50 mcg taken once a day. (3) Dyslipidemia: Code(s): E78.5 - Hyperlipidemia, unspecified Plan: Reinforced importance of a low-cholesterol diet, and getting regular exercise. Fasting lipid panel ordered today (4) Seasonal allergies: Code(s): J30.2 - Other seasonal allergic rhinitis Plan: Currently on cetirizine 10 mg daily and uses fluticasone propionate 1 spray intranasally once a day as needed for nasal congestion (5) Gluten intolerance: Code(s): K90.41 - Non-celiac gluten sensitivity Plan: Patient has been avoiding gluten, with good results (6) Advanced directives, counseling/discussion: Code(s): Z71.89 - Other specified counseling Plan: Initiated the conversation about Advanced Directives. Advanced Directives help patients prepare for current and future decisions about their medical treatment and place of care. Discussed with patient that it is a process where a patients current condition and prognosis are reviewed, their wishes for information regarding their illness are elicited, and likely medical dilemmas are presented and options discussed. Healthcare proxy form completed today The form can be amended as needed, reviewed yearly and make changes as needed Orders: Orders Basic Metabolic Panel Fasting 09/10/23 E55.9 - Vitamin D deficiency, unspecified, E78.5 - Hyperlipidemia, unspecified, J30.2 - Other seasonal allergic rhinitis, Z00.01 - Encounter for general adult medical examination with abnormal findings, Z13.1 - Encounter for screening for diabetes mellitus Lipid Panel 09/10/23 E55.9 - Vitamin D deficiency, unspecified, E78.5 - Hyperlipidemia, unspecified, J30.2 - Other seasonal allergic rhinitis, Z00.01 - Encounter for general adult medical examination with abnormal findings, Z13.1 - Encounter for screening for diabetes mellitus Alanine Aminotransferase 09/10/23 E55.9 - Vitamin D deficiency, unspecified, E78.5 - Hyperlipidemia, unspecified, J30.2 - Other seasonal allergic rhinitis, Z00.01 - Encounter for general adult medical examination with abnormal findings, Z13.1 - Encounter for screening for diabetes mellitus Aspartate Amino Transferase 09/10/23 E55.9 - Vitamin D deficiency, unspecified, E78.5 - Hyperlipidemia, unspecified, J30.2 - Other seasonal allergic rhinitis, Z00.01 - Encounter for general adult medical examination with abnormal findings, Z13.1 - Encounter for screening for diabetes mellitus Vitamin D 25-OH Total 09/10/23 E55.9 - Vitamin D deficiency, unspecified, E78.5 - Hyperlipidemia, unspecified, J30.2 - Other seasonal allergic rhinitis, Z00.01 - Encounter for general adult medical examination with abnormal findings, Z13.1 - Encounter for screening for diabetes mellitus PSA,Total (Free>4and<10) 09/10/23 E55.9 - Vitamin D deficiency, unspecified, E78.5 - Hyperlipidemia, unspecified, J30.2 - Other seasonal allergic rhinitis, Z00.01 - Encounter for general adult medical examination with abnormal findings, Z13.1 - Encounter for screening for diabetes mellitus Coding Level of Care Code Est Pt Prev Care 40-64y(12719) Diagnoses Annual visit for general adult medical examination with abnormal findings Z00.01 Vitamin D deficiency E55.9 Dyslipidemia E78.5 Seasonal allergies J30.2 Gluten intolerance K90.41 Advanced directives, counseling/discussion Z71.89 Additional Codes Vital Signs *Quality* - Advance Care Planning discussion: Completed/Scanned ([id number]) Vital Signs *Quality* - Time spent: 16-45 minutes ([id number])
[2023-09-10 13:03] VITALS: BP 110/70; PULSE 63; O2SAT 97; BMI 27.2
== END 2023-09-10 13:49 | disposition home or self-care (01) ==
PROVIDERS: PCP Internal Medicine; Visit Provider Internal Medicine
DX: Z00.00 Encounter for general adult medical examination without abnormal findings (principal); E55.9 Vitamin D deficiency, unspecified; E78.5 Hyperlipidemia, unspecified; J30.2 Other seasonal allergic rhinitis; K90.41 Non-celiac gluten sensitivity
CPT/HCPCS: 1123F; 99396; 99497

== ENCOUNTER 2023-10-22 13:30 | Outpatient (AMB) | payer OTHER, SELFPAY ==
[2023-10-22 13:34] VITALS: BP 110/70; PULSE 52; O2SAT 97; BMI 27.2
--- NOTE | 2023-10-22 13:34 | A.OFFPC_ITS ---
Vital Signs 10/22/23 13:34 Height 5 ft 8 in Weight 179 lb BMI 27.2 BP 110/70 Blood Pressure Location Rt brachial Position Sitting Pulse 52 Pulse Source Pulse Oximeter Pulse Oximetry (%) 97 Oxygen Delivery Method Room Air Intake Visit Reasons: AllergyProblems Intake Note: Pt is here today c/o fatigue and allergies concerns Allergies No Known Allergies Allergy (Verified 10/22/23 13:49) Medication List - Last Reconciled 10/22/23 by Minerva Guerrero MD cetirizine 10 mg PO DAILY cholecalciferol (vitamin D3) 50 mcg PO DAILY fluticasone propionate 50 mcg/actuation 1 spray intranasal DAILY pantoprazole 40 mg PO DAILY Tobacco use date assessed: 10/22/23 Dental Screening Dental Screen Date: 10/22/23 Did you have a dental visit in the last 12 months?: No Did you have a dental problem in the last 6 months where you did not have access to dental care?: No Was dental information given to patient?: Yes HPI AllergyProblems HPI Details 57-year-old male with hyperlipidemia, se asonal and environmental allergies, here today for follow-up. He has been compliant with taking his medications, complains of having intermittent episodes of fatigue usually present when he is allergy starts acting up. Denies any problems with sleeping. Denies any chest pain, shortness of breath, headaches or lightheadedness. He also has been having intermittent episodes of joint pains mainly in his knees and hands. Complains of increasing breast size, no pain however reported [facility] Medical History History of gastroesophageal reflux (GERD) Gluten intolerance Acquired deviated nasal septum History of Helicobacter pylori infection Hx of gastritis Vitamin D deficiency Hearing loss in right ear Dyslipidemia Seasonal allergies Surgical History History of esophagogastroduodenoscopy (EGD) History of colonoscopy Femoral fracture Family History Father Medical history non-contributory Mother Medical history non-contributory Social History Housing: House Alcohol intake: never Patient Tobacco Use Status: Former Tobacco user Years Smoked: 15 yrs e-Cigarette/Vaping Use: Never Used service: No Current occupational status: employed Current occupation: carpentry Cognitive needs: No Hearing needs: No Vision needs: No Questionnaire Thrive Questionnaire Date Thrive assessed: 09/10/23 GUERO-7 AMB Questionnaire GUERO-7 Date GUERO - 7 assessed: 09/10/23 Source: Developed by Drs. Filemon Steele, Vijaya Devi, Merrill Raines and colleagues, with an educational gurinder from [employer]. Review of Systems Const Denies poor appetite Eyes Details: Sees Dr. Kaitlin Prescott ENT Reports no additional complaints Card Denies chest pain, Denies chest pain with activity, Denies irregular heart rhythm, Denies lightheadedness, Denies dyspnea and Denies dyspnea on exertion Resp Denies dyspnea, Denies dyspnea on exertion and Denies wheezing GI Denies abdominal pain, Denies melena, Denies bloating, Denies hematochezia, Denies change in bowel habits and Denies heartburn Reports no additional complaints Musc Denies back pain, Denies joint swelling and Reports stiffness Skin/Breast Denies breast pain, Denies breast mass, Reports change in breast shape, Denies lesions and Denies rash Neuro Reports no additional complaints Psych Reports no additional complaints Endo Reports no additional complaints Chris/Lymph Reports no additional complaints Aller/Immun Denies wheezing Physical exam (Primary Care) Vital Signs: Last Vital Signs Pulse 52 10/22/23 13:34 BP 110/70 10/22/23 13:34 Pulse Ox 97 10/22/23 13:34 Oxygen Delivery Method Room Air 10/22/23 13:34 BMI result Body Mass Index 27.2 Tobacco/Smoking Status: Tobacco use Status Tobacco use date assessed 10/22/23 10/22/23 13:38 Patient Tobacco Use Status Former Tobacco user 10/22/23 13:38 e-Cigarette/Vaping Use Never Used 10/22/23 13:38 Thrive Assessment: Date of Thrive Assessment Date Thrive assessed 09/10/23 10/22/23 13:38 Const Other: Alert oriented x3 no acute distress noted ambulatory normal gait Orientation/consciousness: patient oriented x3 HENMT Face and sinus: Yes face symmetric Mouth: Normal oral and palatal mucosa present and moist mucous membranes Eyes General: appearance normal, both eyes and all related structures Neck Neck: Yes full ROM, Yes no lymphadenopathy and Yes supple Chest Other: Large breast, ill-defined oughy mass under nipple Resp Auscultation: clear to auscultation bilaterally Cardio Rhythm: regular rhythm Heart sounds: S1 normal heart sound present and S2 normal heart sound present GI Palpation (GI): Soft to palpation, nontender, no guarding and no masses General: Yes no CVA tenderness Back/Spine/Pelvis Back: no CVA tenderness and No back tenderness Skin General skin exam: no rashes or lesions noted Neuro General: patient oriented x3 Extrem General: Yes normal to inspection, Yes full ROM, Yes no joint enlargement, Yes no pedal edema and Yes normal gait Assessment and Plan Assessment & Plan (1) Dyslipidemia: Code(s): E78.5 - Hyperlipidemia, unspecified Plan: Fasting lipid panel ordered (2) Fatigue: Code(s): R53.83 - Other fatigue Qualifiers: Fatigue type: unspecified Qualified Code(s): R53.83 - Other fatigue Plan: Ordered a CBC, comprehensive metabolic panel, vitamin-D level, testosterone level, Lyme titer and TSH with free T4 and vitamin B12 and folic acid level (3) Arthralgia of multiple joints: Code(s): M25.50 - Pain in unspecified joint Plan: Ordered Lyme titer, (4) Gynecomastia: Code(s): N62 - Hypertrophy of breast Plan: Mammogram ordered and testosterone level and PSA ordered Orders: Orders Complete Blood Count Auto Diff 10/22/23 E55.9 - Vitamin D deficiency, unspecified, E78.5 - Hyperlipidemia, unspecified, M25.50 - Pain in unspecified joint, R53.83 - Other fatigue Comprehensive Wagoner. Panel Fast 10/22/23 E55.9 - Vitamin D deficiency, unspecified, E78.5 - Hyperlipidemia, unspecified, M25.50 - Pain in unspecified joint, R53.83 - Other fatigue Vitamin D 25-OH Total 10/22/23 E55.9 - Vitamin D deficiency, unspecified, E78.5 - Hyperlipidemia, unspecified, M25.50 - Pain in unspecified joint, R53.83 - Other fatigue Testosterone, Free/Total 10/22/23 E55.9 - Vitamin D deficiency, unspecified, E78.5 - Hyperlipidemia, unspecified, M25.50 - Pain in unspecified joint, R53.83 - Other fatigue Lyme IgG/IgM w/reflex to WB 10/22/23 E55.9 - Vitamin D deficiency, unspecified, E78.5 - Hyperlipidemia, unspecified, M25.50 - Pain in unspecified joint, R53.83 - Other fatigue Lipid Panel 10/22/23 E55.9 - Vitamin D deficiency, unspecified, E78.5 - Hyperlipidemia, unspecified, M25.50 - Pain in unspecified joint, R53.83 - Other fatigue TSH reflex Free T4 10/22/23 E55.9 - Vitamin D deficiency, unspecified, E78.5 - Hyperlipidemia, unspecified, M25.50 - Pain in unspecified joint, R53.83 - Other fatigue Vitamin B12 and Folate 10/22/23 E55.9 - Vitamin D deficiency, unspecified, E78.5 - Hyperlipidemia, unspecified, M25.50 - Pain in unspecified joint, R53.83 - Other fatigue PSA,Total (Free>4and<10) 10/22/23 E55.9 - Vitamin D deficiency, unspecified, E78.5 - Hyperlipidemia, unspecified, M25.50 - Pain in unspecified joint, R53.83 - Other fatigue MM tomosynthesis screening BI 10/22/23 N62 - Hypertrophy of breast, Z12.31 - Encounter for screening mammogram for malignant neoplasm of breast Coding Level of Care Code Est Pt Level 4 (21332) Complex EM visit Add On G2211 Diagnoses Dyslipidemia E78.5 Fatigue, unspecified type R5 Fatigue type: unspecified Arthralgia of multiple joints M25.50 Gynecomastia N62
== END 2023-10-22 14:31 | disposition home or self-care (01) ==
PROVIDERS: PCP Internal Medicine; Visit Provider Internal Medicine
DX: E78.5 Hyperlipidemia, unspecified (principal); R53.83 Other fatigue; M25.50 Pain in unspecified joint; N62 Hypertrophy of breast
CPT/HCPCS: 99214

== ENCOUNTER 2023-10-28 11:16 | Outpatient (REF) | payer OTHER, SELFPAY ==
[2023-10-28 11:39] LABS: MANUAL DIFF FLAG NO
[2023-10-28 12:20] LABS: Eosinophils Absolute Auto 0.1 X10*3/uL (0.0-0.4); Eosinophils Percent Auto 1.8 % (0-4); Hematocrit 46.3 % (42.0-52.0); Hemoglobin 15.5 g/dl (14.0-18.0); Lymphocytes Absolute Auto 1.7 X10*3/uL (1.2-4.9); Lymphocytes Percent Auto 42.8 % (20-40); Mean Corpuscular HGB Conc 33.5 g/dl (31.0-36.0); Mean Corpuscular Hemoglobin 31.2 pg (27.0-33.0); Mean Corpuscular Volume 93.2 fL (80.0-98.0); Mean Platelet Volume 10.8 fL (9.4-12.4); Monocytes Absolute Auto 0.3 X10*3/uL (0.1-1.2); Monocytes Percent Auto 8.1 % (2-11); Neutrophils Absolute Auto 1.8 x10*3/uL (2.0-8.3); Neutrophils Percent Auto 46.3 % (45-73); Platelet Count 194 X10*3/uL (160-400); Red Blood Count 4.97 X10*6/uL (4.60-5.80); Red Cell Distribution Width 12.7 % (11.0-16.0)
[2023-10-28 13:01] LABS: Alanine Aminotransferase 31 U/L (0-40); Albumin Level 4.1 g/dL (3.5-5.0); Alkaline Phosphatase 57 U/L (39-117); Anion Gap 9 (12-20); Aspartate Amino Transferase 25 U/L (5-37); Bilirubin Total 0.9 mg/dL (0.0-1.0); Blood Urea Nitrogen 11 mg/dL (9-16); Calcium 9.2 mg/dL (8.4-10.2); Carbon Dioxide 27 mmol/L (22-29); Chloride 109 mmol/L (96-108); Cholesterol 209 mg/dL (<200); Estimated Glomerular Filt Rate > 60; Glucose Fasting 94 mg/dL (60-99); HDL Cholesterol 41 mg/dL (>40); LDL Cholesterol Calculated 156 mg/dL (<100); Potassium 4.3 mmol/L (3.3-5.1); Sodium 141 mmol/L (135-145); Total Protein 6.9 g/dL (6.5-8.0); Triglycerides 63 mg/dL (<150)
[2023-10-28 13:16] LABS: TSH reflex Free T4 1.24 uIU/mL (0.32-4.0); Vitamin D 25-OH Total 46.1 ng/mL (>30)
[2023-10-28 13:48] LABS: PSA,Total (Free>4and<10) 1.21 ng/mL (0.00-4.00)
[2023-10-28 14:01] LABS: Folate 8.7 ng/mL (> or = 4.0); Vitamin B12 671 pg/mL (200-900)
[2023-10-30 17:29] LABS: Lyme Abs Screen <0.90 index
[2023-11-02 18:53] LABS: Testosterone, Free 77.3 pg/mL (35.0-155.0); Testosterone, Total 564 ng/dL (250-1100)
== END 2023-10-28 11:17 | disposition home or self-care (01) ==
LOC: HO.LAB 11:16
PROVIDERS: PCP Internal Medicine; Visit Provider Internal Medicine
DX: M25.50 Pain in unspecified joint (principal); R53.83 Other fatigue; E78.5 Hyperlipidemia, unspecified; E55.9 Vitamin D deficiency, unspecified; Z12.5 Encounter for screening for malignant neoplasm of prostate
CPT/HCPCS: 36415; 80053; 80061; 82306; 82607; 82746; 84153; 84402; 84403; 84443; 85025; 86617; 86618

== ENCOUNTER 2024-08-05 13:26 | Outpatient (AMB) | payer OTHER, SELFPAY ==
--- OUTSIDE RECORDS SUMMARY | 2024-08-05 14:07 | XMS_ITS | Clinical Summary ---
Author Organization [facility] Address [address] [place] [address] Care Team Providers Care Production Cell Leader Name Role Phone Unavailable Primary Care Provider Unavailabl e Social History Tobacco Use Types Packs/Day Years Used Date Smoking Tobacco: Never Assessed Sex and Gender Information Value Date Recorded Sex Assigned at Not on file Legal Sex Male 1:38 PM EDT Gender Identity Not on file Sexual Orientation Not on file Plan of Treatment Health Maintenance Due Date Last Done Comments Hepatitis C Virus Screening 1966 HIV Screening 11/07/1979 DTaP/Tdap/Td Vaccines (1 - Tdap) 1985 Hepatitis B Vaccines (1 of 3 - 19+ 3-dose series) 1985 Pneumococcal Vaccines 50+ (1 of 1 - PCV) 2016 Zoster (Shingles) Vaccine (1 of 2) 2016 COVID-19 Vaccine ( - 2023-2 5 season) 2023 Pneumococcal Vaccine: Pediat faisal (0-5 Years) and At-Risk Patients (6 to 49 Years) Aged Out No longer eligible b ased on patient's age to complete this topic
[2024-08-05 14:09] VITALS: BP 122/90; PULSE 46; O2SAT 99; BMI 26.8
--- NOTE | 2024-08-05 14:09 | AM.OFFWIN_ITS ---
Intake Vital Signs 08/05/24 14:09 Height 5 ft 8 in Weight 176 lb BMI 26.8 BP 122/90 H Blood Pressure Location Lt brachial Position Sitting Pulse 46 L Pulse Source Pulse Oximeter Pulse Oximetry (%) 99 Oxygen Delivery Method Room Air Intake Visit Reasons: EP-?rash back of head Intake Note: Patient here for pimples on head that started in june and comes and goes. 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 He has been seeing aeronautical engineering officer and is getting doxycycline Patient says that his next appointment is not until after October He is requesting a script for doxycycline as he is having a flare-up Medications sent [facility] Medical History History of gastroesophageal reflux (GERD) Gluten intolerance Acquired deviated nasal septum History of Helicobacter pylori infection Hx of gastritis Vitamin D deficiency Hearing loss in right ear Dyslipidemia Seasonal allergies Surgical History History of esophagogastroduodenoscopy (EGD) History of colonoscopy Femoral fracture Family History Father Medical history non-contributory Mother Medical history non-contributory Social History Housing: House Alcohol intake: never Patient Tobacco Use Status: Former Tobacco user Years Smoked: 15 yrs e-Cigarette/Vaping Use: Never Used service: No Current occupational status: employed Current occupation: carpentry Cognitive needs: No Hearing needs: No Vision needs: No Review of Systems Const All systems reviewed & are unremarkable except as noted in HPI and below Physical Exam Vital Signs: Last Vital Signs Pulse 46 L 08/05/24 14:09 BP 122/90 H 08/05/24 14:09 Pulse Ox 99 08/05/24 14:09 Oxygen Delivery Method Room Air 08/05/24 14:09 BMI result Body Mass Index 26.8 Const General: no acute distress Orientation/consciousness: patient oriented x3 Eyes General: appearance normal, both eyes and all related structures Resp Effort & Inspection: normal respiratory effort and able to speak in complete sentences Skin Other: Forty colitis noticed around chin area patient have small henry and scalp Neuro General: patient oriented x3 Psych Mental Status: mental status grossly normal Assessment & Plan Assessment & Plan (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
== END 2024-08-05 14:30 | disposition home or self-care (01) ==
PROVIDERS: PCP Internal Medicine; Visit Provider Internal Medicine
DX: L66.3 Perifolliculitis capitis abscedens (principal)

== ENCOUNTER → 2024-08-05 13:26 | Outpatient (BNVA) | payer OTHER, SELFPAY | PROVIDERS: PCP Internal Medicine; Visit Provider Internal Medicine ==

== ENCOUNTER 2024-09-07 09:12 | Outpatient (REF) | payer OTHER, SELFPAY ==
--- NOTE | ~2024-09-07 | US_ITS ---
EXAMINATION: MM DIAGNOSTIC DIGITAL BREAST TOMOSYNTHESIS, BILATERAL Bilateral Limited ultrasound. CLINICAL INFORMATION: Bilateral hypertrophic the both breasts retroareolar region. Patient is planning on having surgical removal. COMPARISON: Mammography: Comparison is made with relevant prior exams. TECHNIQUE: Digital breast mammography with tomosynthesis is performed in both the craniocaudal and mediolateral oblique views along with computer-aided detection (CAD). FINDINGS: There is bilateral moderate nodular retroareolar flame-shaped gynecomastia. No suspicious calcifications or other abnormal findings. Targeted color Doppler ultrasound scanning in the bilateral retroareolar regions demonstrates bilateral nodular moderate gynecomastia. There is no suspicious sonographic abnormal findings. Results are provided to the patient at time of visit by the technologist. US/US breast BI limited mamm only IMPRESSION: Bilateral retroareolar flame-shaped moderate nodular gynecomastia. Benign. Patient is planning on seeing a breast surgeon for surgical removal of these areas. ASSESSMENT: BI-RADS BI-RADS 2 - Benign Findings RECOMMENDATION: Clinical evaluation and follow-up. Electronically signed by: Kasandra Barger DO 09/07/2024 11:27 AM EDT
--- OUTSIDE RECORDS SUMMARY | 2024-09-07 09:47 | XMS_ITS | Clinical Summary ---
Author Organization [facility], Located Within [facility] Address [address] [place] [address] Care Team Providers Care Slate Cutter Operator Name Role Phone Unavailable Primary Care Provider [...] (1 of 3 - 19+ 3-dose series) 10/12 Pneumococcal Vaccines 50+ (1 of 1 - PCV) 2016 Zoster (Shingles) Vaccine (1 of 2) 2016 COVID-19 Vaccine ( - 2023- season) 2023
== END 2024-09-07 09:13 | disposition home or self-care (01) ==
LOC: HO.MAMMO 09:12
PROVIDERS: PCP Internal Medicine; Visit Provider Internal Medicine
DX: N62 Hypertrophy of breast (principal)
CPT/HCPCS: 76642; 77062; 77066

== ENCOUNTER → 2024-09-07 09:30 | Outpatient (BNV) | payer OTHER, SELFPAY | PROVIDERS: PCP Internal Medicine; Visit Provider Internal Medicine | DX: N62 Hypertrophy of breast (principal) | CPT/HCPCS: 76642; 77062; 77066 ==

== ENCOUNTER 2024-10-18 10:50 | Outpatient (REF) | payer SELFPAY ==
--- OUTSIDE RECORDS SUMMARY | 2024-10-18 11:54 | XMS_ITS | Patient Health Record ---
Author Organization [facility] Address [address] [place] [address] Care Team Providers Care Inspector Penetrant Name Role Phone Yolanda MUHAMMAD, Minerva Primary Care Provider Chris Reynoso Jr Unavailable Allergies Allergen (clinical drug ingredient) Drug/Non Drug Allergy documented on EMR Reaction Allergy Type Onset Date Status seasonal (uncoded) Unknown Allergy A ctive Reason For Referral No Information Medications Medication SIG (Take, Route, Frequency, Duration) Notes Start Date End Date Status Cetirizine HCl 10 MG TK 1 T PO HS Oral for 30 Active Minocycline HCl Acti ve Fluticasone Propionate Active Colyte with Flavor Packs 240 GM As directed Orally Over the specified time. for 1 day(s) Active Social History Tobacco Use: Social History Observation Description Date Details (start date - stop date) Former Smoker NA - NA Tobacco Use/Smoking Question Answer Notes Patient is a former smoker How long has it been since you last smoked? > 10 years Alcohol Screen Question Answer Notes Did you have a drink containing alcohol in the p ast year? No Points 0 Interpretation Negative Problems Problem Type SNOMED Code ICD Code Onset Dates Problem Status W/U Status Risk Notes Problem 393824264 Colon cancer screening (Z12.11) Active confirmed Problem 28496595 Encounter for other preprocedural examination (Z01.818) Active confirmed Plan Of Treatment Future Test Test Name Order Date COLONOSCOPY 06/24/2017 Insurance Providers Payer Name Payer Address Payer Phone Subscriber Number Group Number Insured Name Patient Relationship to Insured Coverage Start Date Coverage End Date [facility] [address] [place] [phone] [id number] ISAIAH DEL ANGEL Self - patient is the insured Medical (General) History Medical History History ICD Code Denies [place],DM,CVA,Lung disease,renal dise ase Surgical History Surgery Date(Month/Year) femor surgery
--- OUTSIDE RECORDS SUMMARY | 2024-10-18 11:54 | XMS_ITS | Clinical Summary ---
Author Organization [facility] Address [address] [place] [address] Care Team Providers Care Network Support Engineer Name Role Phone Unavailable Primary Care Provider [...]
[2024-10-18 14:21] LABS: Hematocrit 43.0 % (42.0-52.0); Hemoglobin 14.9 g/dl (14.0-18.0)
[2024-10-18 14:52] LABS: Cholesterol 162 mg/dL (<200); HDL Cholesterol 41 mg/dL (>40); Triglycerides 67 mg/dL (<150)
[2024-10-18 15:01] LABS: PSA,Total (Free>4and<10) 1.21 ng/mL (0.00-4.00)
== END 2024-10-18 10:51 | disposition home or self-care (01) ==
LOC: HO.HMGCLDS 10:50
PROVIDERS: PCP Internal Medicine; Visit Provider Internal Medicine
DX: Z12.5 Encounter for screening for malignant neoplasm of prostate (principal); R42 Dizziness and giddiness; E55.9 Vitamin D deficiency, unspecified; E78.5 Hyperlipidemia, unspecified; Z87.19 Personal history of other diseases of the digestive system
CPT/HCPCS: 36415; 80061; 82306; 82947; 84153; 85014; 85018

== ENCOUNTER 2024-10-19 11:41 | Outpatient (AMB) | payer OTHER, SELFPAY ==
--- NOTE | 2024-10-19 12:15 | MHC.PC.OV ---
Vital Signs 10/19/24 12:20 Height 5 ft 8 in Weight 178 lb BMI 27.1 BP 100/60 Blood Pressure Location Rt brachial Position Sitting Pulse 50 Pulse Source Pulse Oximeter Temp 98.2 F Temp Source Oral Pulse Oximetry (%) 99 Oxygen Delivery Method Room Air Intake Visit Reasons: Physical exam Intake Note: Pt is here today for his PE Allergies No Known Allergies Allergy (Verified 10/19/24 12:29) Medication List - Last Reconciled 10/19/24 by Minerva Guerrero MD cetirizine 10 mg PO DAILY cholecalciferol (vitamin D3) 50 mcg PO DAILY fluticasone propionate 50 mcg/actuation 1 spray intranasal DAILY Tobacco use date assessed: 10/19/24 Dental Screening Dental Screen Date: 10/19/24 Did you have a dental visit in the last 12 months?: No Did you have a dental problem in the last 6 months where you did not have access to dental care?: No Was dental information given to patient?: Patient declined HPI Physical exam HPI Details 58-year-old male here today for his physical exam. He had recent fasting labs done which showed normal fasting glucose and lipids as well as vitamin-D level. He is up-to-date with his colon cancer screening, with last colonoscopy done by Dr. Clemente in 2017 showed normal findings, repeat again due in 2027. He has seasonal environmental allergies, takes cetirizine 10 mg daily and Flonase nasal spray which has been helping. [facility] Medical History (Updated 10/23/24 @ 22:12 by Minerva Guerrero MD) Gynecomastia, male History of gastroesophageal reflux (GERD) Gluten intolerance Acquired deviated nasal septum History of Helicobacter pylori infection Hx of gastritis Vitamin D deficiency Hearing loss in right ear Dyslipidemia Seasonal allergies Surgical History History of esophagogastroduodenoscopy (EGD) History of colonoscopy Femoral fracture Family History Father Medical history non-contributory Mother Medical history non-contributory Social History Housing: House Alcohol intake: never Patient Tobacco Use Status: Former Tobacco user Years Smoked: 15 yrs e-Cigarette/Vaping Use: Never Used service: No Current occupational status: employed Current occupation: carpentry Cognitive needs: No Hearing needs: No Vision needs: No Questionnaire PHQ-9 Over the last 2 weeks, how often have you been bothered by any of the following problems? 1. Little interest or pleasure in doing things: not at all 2. Feeling down, depressed, or hopeless: not at all 3. Trouble falling or staying asleep, or sleeping too much: not at all 4. Feeling tired or having little energy: not at all 5. Poor appetite or overeating: not at all 6. Feeling bad about yourself - or that you are a failure or have let yourself or your family down: not at all 7. Trouble concentrating on things, such as reading the newspaper or watching television: not at all 8. Moving or speaking so slowly that other people could have noticed. Or the opposite - being so fidgety or restless that you have been moving around a lot more than usual: not at all 9. Thoughts that you would be better off or of hurting yourself in some way: not at all Total score: 0 Depression Screening Interpretation: Negative Depression Screening Done: Yes 45171 - PHQ-9 Billing: Yes Source: Developed by Drs. Filemon Steele, Vijaya Devi, Merrill Raines and colleagues, with an educational gurinder from [employer]. Thrive Questionnaire Date Thrive assessed: 10/19/24 I am a: Patient What is your living situation today?: I have a steady place to live Within the past 12 months, did the food you bought not last and you didn't have the money to get more?: Never true Within the past 12 months, did you worry whether your food would run out before you got money to buy more?: Never true Do you have trouble paying for medicines?: No Do you have trouble getting transportation to medical appointments?: No Do you have trouble paying your heating and electricity bill?: No Do you have trouble taking care of your child, family member or friend?: No Do you have trouble with day-to-day activities such as bathing, preparing meals, shopping, managing finances, etc.?: No Are you currently unemployed and looking for a job?: No Are you interested in more education?: No Currently or been in a relationship where the following occur: No concerns reported THRIVE Score: 0 AUDIT C Alcohol Use Questionnaire (AUDIT-C) 1. How often do you have a drink containing alcohol?: Never Total Score: 0 Score Reviewed/Action Taken: Yes GUERO-7 AMB Questionnaire GUERO-7 Date GUERO - 7 assessed: 10/19/24 Feeling nervous, anxious, or on edge: 0 = Not at all Not being able to stop or control worryin = Not at all Worrying too much about different things: 0 = Not at all Trouble relaxin = Not at all Being so restless that it is hard to sit still: 0 = Not at all Becoming easily annoyed or irritable: 0 = Not at all Feeling afraid as if something awful might happen: 0 = Not at all Total GUERO-7 score (0-4 normal; 5-9 mild; 10-14 moderate; 15-21 severe): 0 Source: Developed by Drs. Filemon Steele, Vijaya Devi, Merrill Raines and colleagues, with an educational gurinder from [employer]. Review of Systems Const All systems reviewed & are unremarkable except as noted in HPI and below Physical exam (Primary Care) Vital Signs: Last Vital Signs Temp 98.2 F 10/19/24 12:20 Pulse 50 10/19/24 12:20 BP 100/60 10/19/24 12:20 Pulse Ox 99 10/19/24 12:20 Oxygen Delivery Method Room Air 10/19/24 12:20 BMI result Body Mass Index 27.1 Tobacco/Smoking Status: Tobacco use Status Tobacco use date assessed 10/19/24 10/19/24 12:17 Patient Tobacco Use Status Former Tobacco user 10/19/24 12:17 e-Cigarette/Vaping Use Never Used 10/19/24 12:17 PHQ-9: PHQ-9 Score PHQ-9: Total score 0 10/19/24 12:30 Depression Screening Interpretation: Negative Thrive Assessment: Date of Thrive Assessment Date Thrive assessed 10/19/24 10/19/24 12:24 Currently or been in a relationship where the following occur: No concerns reported Advance Care Planning discussion: Completed/Scanned Date of discussion: 10/19/24 Who was present: Patient Forms completed: Health Care Proxy Time spent: 16-45 minutes Actual minutes spent: 3 Const Other: Alert oriented x3 no acute distress noted ambulatory normal gait Orientation/consciousness: patient oriented x3 HENMT Face and sinus: Yes face symmetric Mouth: Normal oral and palatal mucosa present and moist mucous membranes Eyes General: appearance normal, both eyes and all related structures Neck Neck: Yes full ROM, Yes no lymphadenopathy and Yes supple Chest Other: Large breast, ill-defined oughy mass under nipple Resp Auscultation: clear to auscultation bilaterally Cardio Rhythm: regular rhythm Heart sounds: S1 normal heart sound present and S2 normal heart sound present GI Palpation (GI): Soft to palpation, nontender, no guarding and no masses General: Yes no CVA tenderness Back/Spine/Pelvis Back: no CVA tenderness and No back tenderness Skin General skin exam: no rashes or lesions noted Neuro General: patient oriented x3, gait normal, tone normal, moves all extremities, no focal motor deficits and CN's II-XI intact bilaterally Gait exam (Neuro): Normal gait present Extrem General: Yes normal to inspection, Yes full ROM, Yes no joint enlargement, Yes no pedal edema and Yes normal gait Results Reviewed Results Reviewed: Laboratory Tests 10/18/24 11:01 Hgb 14.9 Hct 43.0 Fasting Glucose 97 Name: Ulises Ray Age/Sex: 58/M : 1965 Unit#: [id number] Attend Dr: Minerva Guerrero MD Re10/18/24 Status: DEP REF Location: [facility] Disch: SPEC : [id number] ELLIOTT: 10/18/24-110 STATUS: COMP REQ : [id number] RECD: 10/18/24-[address]: Minerva Guerrero MD COMP: 10/18/24-1459 ENTERED: 10/18/24-[address]: ORDERED: Glu Fasting, Lipid Panel, Vitamin D 25-OH Test Result Flag Reference FBS 97 60-99 mg/dL Triglyceride 67 <150 mg/dL Desirable Triglyceride: less than 150 mg/dL Borderline High Triglyceride 150-199 mg/dL High Triglyceride: 200-499 mg/dL Very High Triglyceride: greater than or equal to 5OO mg/dL Cholesterol 162 <200 mg/dL Desirable Cholesterol: less than 200 mg/dL Borderline High Cholesterol: 200-239 mg/dL High Cholesterol: greater than 239 mg/dL LDL Calculated 108 H <100 mg/dL Desirable LDL: less than 100 mg/dL Near Optimal/Above Optimal LDL: 110-129 mg/dL Borderline High LDL: 130-159 mg/dL High LDL: 160-189 mg/dL Very High LDL: greater than or equal to 190 mg/dL HDL 41 >40 mg/dL Desirable HDL: greater than 40 mg/dL Note: This HDL assay may give artificially low results in patients with liver disease. Vitamin D 25-OH 48.5 >30 ng/mL Health Based Reference Values* < 20 ng/mL Deficient 20-30 ng/mL Insufficient > 30 ng/mL Sufficient Coding Level of Care Code Est Pt Prev Care 40-64y(56076) Diagnoses Annual visit for general adult medical examination with abnormal findings Z00. 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 Recommended dental visit every 6 months and regular eye exams, at least every 2 years. Take adequate calcium in diet and vitamin-D 3 at 2000 IU per cap once a day, in addition to weight-bearing exercises to help maintain good muscle tone and weight control. Instructed to do self testicular exam check for any mass. Up-to-date with his vaccines. Up-to-date with his screening colonoscopy done [place] [address] Clemente, repeat due again in 2027. (2) Dyslipidemia: Code(s): E78.5 - Hyperlipidemia, unspecified Category: Medical Plan: Latest fasting lipids are within normal limits, continue with adherence to healthy eating habits and regular exercise (3) Seasonal allergies: Code(s): J30.2 - Other seasonal allergic rhinitis Category: Medical Plan: Continue cetirizine and Flonase (4) Gluten intolerance: Code(s): K90.41 - Non-celiac gluten sensitivity Category: Medical Plan: Continued avoidance of gluten, currently asymptomatic (5) Gynecomastia, male: Code(s): N62 - Hypertrophy of breast Category: Medical Plan: Referred to surgery for further evaluation management (6) 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 Advanced Directives help patients prepare for current and future decisions about their medical treatment and place of care. Discussed with patient that it is a process where a patients current condition and prognosis are reviewed, their wishes for information regarding their illness are elicited, and likely medical dilemmas are presented and options discussed. Healthcare proxy form completed today. The form can be amended as needed, reviewed yearly and make changes as needed Orders: Referrals General Surgery Referral N62 - Hypertrophy of breast
[2024-10-19 12:20] VITALS: BP 100/60; PULSE 50; TEMP 36.8; O2SAT 99; BMI 27.1
--- OUTSIDE RECORDS SUMMARY | 2024-10-19 12:52 | XMS_ITS | Clinical Summary ---
Author Organization [facility] Address [address] [place] [address] Care Team Providers Care Import Coordination And Production Head Name Role Phone Unavailable Primary Care Provider [...]
--- OUTSIDE RECORDS SUMMARY | 2024-10-19 12:52 | XMS_ITS | Patient Health Record ---
Author Organization [facility] Address [address] [place] [address] Care Team Providers Care Supervisor Denture Department Name Role Phone Yolanda MUHAMMAD, Minerva Primary Care Provider Chris Reynoso Jr Unavailable [phone] Allergies Allergen (clinical drug ingredient) Drug/Non Drug [...] Problem Status W/U Status Risk Notes Problem [id number] Colon cancer screening (Z12.11) Active confirmed Problem 88372263 Encounter for other preprocedural examination (Z01.818) Active confirmed Plan Of Treatment Future Test Test Name Order Date COLONOSCOPY 06/24/2017 Insurance Providers Payer Name Payer Address Payer Phone Subscriber Number Group Number Insured Name Patient Relationship to Insured Coverage Start Date Coverage End Date [facility] [address] [place] [phone] [id number] ISAIAH DEL ANGEL Self - patient is the insured Medical (General) History Medical History History ICD Code Denies [place],DM,CVA,Lung disease,renal dise ase Surgical History Surgery Date(Month/Year) femor surgery
== END 2024-10-19 13:59 | disposition home or self-care (01) ==
LOC: HO.HMCC 11:42
PROVIDERS: PCP Internal Medicine; Visit Provider Internal Medicine
DX: Z00.01 Encounter for general adult medical examination with abnormal findings (principal); E78.5 Hyperlipidemia, unspecified; J30.2 Other seasonal allergic rhinitis; K90.41 Non-celiac gluten sensitivity; N62 Hypertrophy of breast; L66.3 Perifolliculitis capitis abscedens; Z71.89 Other specified counseling; Z00.00 Encounter for general adult medical examination without abnormal findings

== ENCOUNTER → 2024-10-19 11:41 | Outpatient (BNVA) | payer SELFPAY | PROVIDERS: PCP Internal Medicine; Visit Provider Internal Medicine | DX: Z00.01 Encounter for general adult medical examination with abnormal findings (principal); E78.5 Hyperlipidemia, unspecified; J30.2 Other seasonal allergic rhinitis; K90.41 Non-celiac gluten sensitivity; N62 Hypertrophy of breast; L66.3 Perifolliculitis capitis abscedens; Z71.89 Other specified counseling | CPT/HCPCS: 96127 ==

== ENCOUNTER 2024-11-18 09:39 | Outpatient (AMB) | payer SELFPAY ==
--- NOTE | 2024-11-18 09:39 | A.OFFPC_ITS ---
Intake Visit Reasons: scalp infection/abt Retirement Plan Specialist Required: No Accompanied by: Self / Same As Patient Allergies No Known Allergies Allergy (Verified 11/18/24 09:58) Medication List - Last Reconciled 11/18/24 by Minerva Guerrero MD cetirizine 10 mg PO DAILY cholecalciferol (vitamin D3) 50 mcg PO DAILY fluticasone propionate 50 mcg/actuation 1 spray intranasal DAILY Tobacco use date assessed: 11/18/24 Dental Screening Dental Screen Date: 11/18/24 Did you have a dental visit in the last 12 months?: Yes Did you have a dental problem in the last 6 months where you did not have access to dental care?: No Was dental information given to patient?: Patient has dentist HPI scalp infection/abt HPI Details - The patient is a 59-year-old male pres enting with a recurrent infection, mainly on posterior aspect of scalp . - The skin infection has been persistent despite previous antibiotic treatments, including minocycline , prescribed by a senior salesforce developer. - The patient reports that the infection is painful upon touch and has been recurring even after antibiotic courses. COUNTS INCLUDE 234 BEDS AT THE [facility] Medical History Gynecomastia, male History of gastroesophageal reflux (GERD) Gluten intolerance Acquired deviated nasal septum History of Helicobacter pylori infection Hx of gastritis Vitamin D deficiency Hearing loss in right ear Dyslipidemia Seasonal allergies Surgical History History of esophagogastroduodenoscopy (EGD) History of colonoscopy Femoral fracture Family History Father Medical history non-contributory Mother Medical history non-contributory Social History Housing: House Alcohol intake: never Patient Tobacco Use Status: Former Tobacco user Years Smoked: 15 yrs e-Cigarette/Vaping Use: Never Used service: No Current occupational status: employed Current occupation: carpentry Cognitive needs: No Hearing needs: No Vision needs: No Questionnaire Thrive Questionnaire Date Thrive assessed: 10/19/24 GUERO-7 AMB Questionnaire GUERO-7 Date GUERO - 7 assessed: 10/19/24 Source: Developed by Vijaya Jackson.W. Marito, Merrill Raines and colleagues, with an educational gurinder from [employer]. Review of Systems Const All systems reviewed & are unremarkable except as noted in HPI and below Physical exam (Primary Care) Tobacco/Smoking Status: Tobacco use Status Tobacco use date assessed 11/18/24 11/18/24 09:42 Patient Tobacco Use Status Former Tobacco user 11/18/24 09:42 e-Cigarette/Vaping Use Never Used 11/18/24 09:42 Thrive Assessment: Date of Thrive Assessment Date Thrive assessed 10/19/24 11/18/24 09:42 Telehealth Telehealth Telehealth Platform: Its[employer] Location of provider rendering services: practice address Location of patient: address on file Patient Identification confirmed using: Name, : Yes Telehealth method: video Patient verbally consented to treatment: Yes Patient verbally consented to billing insurance company: Yes Patient informed of any privacy concerns related to visit: Yes Minutes spent on Phone/Video with Pt.: 20 Coding Level of Care Code Tele Est Pt Level 4 (47586) Diagnoses Lesion of skin of scalp L98.9 Assessment & Plan Assessment & Plan (1) Lesion of skin of scalp: Code(s): L98.9 - Disorder of the skin and subcutaneous tissue, unspecified Plan: The patient was prescribed cephalexin, to be taken twice daily for 10 days, as a treatment for the recurrent skin infection. A referral to a dermatology clinic, [facility], was made to further evaluate and manage the persistent infection. The patient was advised to contact the dermatology clinic to schedule an appointment and to delay starting the antibiotic if an appointment could be secured soon, allowing the senior salesforce developer to assess the infection in its current state. Patient was informed and verbally consented to the use of an ambient scribe for clinic note documentation during this visit. Orders: Referrals Dermatology Referral L98.9 - Disorder of the skin and subcutaneous tissue, unspecified Medications: New cephalexin 500 mg PO Q12H 20 caps 0RF 10 days
--- OUTSIDE RECORDS SUMMARY | 2024-11-18 09:41 | XMS_ITS | Clinical Summary ---
Author Organization [facility] Address [address] [place] [address] Care Team Providers Care Pump House Operator Name Role Phone Unavailable Primary Care [...]
--- OUTSIDE RECORDS SUMMARY | 2024-11-18 09:42 | XMS_ITS | Patient Health Record ---
Author Organization [facility] Address [address] [place] [address] Care Team Providers Care Dispatch Supervisor Name Role Phone Yolanda MUHAMMAD, Minerva Primary [...] Problem Status W/U Status Risk Notes Problem [id number] Colon cancer screening (Z12.11) Active confirmed Problem 80015373 Encounter for other preprocedural examination (Z01.818) Active confirmed Plan Of Treatment Future Test Test Name Order Date COLONOSCOPY 06/24/2017 Insurance Providers Payer Name Payer Address Payer Phone Subscriber Number Group Number Insured Name Patient Relationship to Insured Coverage Start Date Coverage End Date [facility] [address] [place] [phone] [id number] ISAIAH DEL ANGEL Self - patient is the insured Medical (General) History Medical History History ICD Code Denies [place],DM,CVA,Lung disease,renal dise ase Surgical History Surgery Date(Month/Year) femor surgery
== END 2024-11-18 13:20 | disposition home or self-care (01) ==
LOC: HO.HMCC 09:39
PROVIDERS: PCP Internal Medicine; Visit Provider Internal Medicine
DX: L98.9 Disorder of the skin and subcutaneous tissue, unspecified (principal)

== ENCOUNTER 2024-12-29 15:35 | Outpatient (AMB) | payer SELFPAY ==
--- NOTE | 2024-12-29 15:37 | MHC.OFFVIS ---
Vital Signs 12/29/24 15:44 Height 5 ft 7 in Weight 177 lb BMI 27.7 BP 115/58 L Blood Pressure Location Rt brachial Position Sitting Pulse 59 Intake Visit Reasons: Hypertrophy of breast Intake Note: Patient referred by pcp Dr. Guerrero for evaluation of hypertrophy of breast. Patient c/o: gynecomastia. Denies pain, tendeness, nipple discharge. No family hx of breast CA. Imaging: Bilateral breast US~ 09-07-2024 [employer] Gl[employer] Instructor Required: No Accompanied by: Self / Same As Patient Allergies No Known Allergies Allergy (Verified 12/29/24 15:42) Medication List - Last Reconciled 12/29/24 by Howie Larson MD cetirizine 10 mg PO DAILY cholecalciferol (vitamin D3) 50 mcg PO DAILY fluticasone propionate 50 mcg/actuation 1 spray intranasal DAILY HPI HPI Hypertrophy of breast: Details: 59-year-old male referred for gynecomastia. He says that he has had large breasts for a male all his life. He denies any pain. He denies any palpable mass within the breasts. He is interested in reduction mammoplasty so he was referred to me. He had a recent mammogram which did not reveal any pathology. [facility] Medical History Gynecomastia, male History of gastroesophageal reflux (GERD) Gluten intolerance Acquired deviated nasal septum History of Helicobacter pylori infection Hx of gastritis Vitamin D deficiency Hearing loss in right ear Dyslipidemia Seasonal allergies Surgical History History of esophagogastroduodenoscopy (EGD) History of colonoscopy Femoral fracture Family History Father Medical history non-contributory Mother Medical history non-contributory Social History Housing: House Alcohol intake: never Patient Tobacco Use Status: Former Tobacco user Years Smoked: 15 yrs e-Cigarette/Vaping Use: Never Used service: No Current occupational status: employed Current occupation: carpentry Cognitive needs: No Hearing needs: No Vision needs: No Review of Systems Const Denies chills and Denies fever(s) Card Denies chest pain, Denies dyspnea and Denies dyspnea on exertion Resp Denies cough, Denies dyspnea and Denies dyspnea on exertion GI Denies hematochezia and Denies change in bowel habits Denies hematuria and Denies difficulty urinating Musc Denies back pain and Denies limited range of motion Neuro Denies focal weakness and Denies convulsions Psych Denies depression and Denies mood swings Physical Exam Vital Signs: Last Vital Signs Pulse 59 12/29/24 15:44 BP 115/58 L 12/29/24 15:44 BMI result Body Mass Index 27.7 Const General: comfortable and no acute distress Orientation/consciousness: patient oriented x3 Neck Neck: Yes no lymphadenopathy Chest Other: Bilateral gynecomastia, symmetrical, no palpable breast masses Resp Auscultation: clear to auscultation bilaterally Cardio Rhythm: regular rhythm GI Palpation (GI): Soft to palpation, nontender and no guarding Neuro General: patient oriented x3 Assessment & Plan Assessment & Plan (1) Gynecomastia, male: Code(s): N62 - Hypertrophy of breast Category: Medical Plan: He has bilateral gynecomastia and is interested in reduction mammoplasty. I told him that we will refer him to a plastic surgeon in [place] for this. I will assist him with this referral. He does not have any health insurance so I explained to him that it may be difficult to find him a plastic surgeon to do his reduction mammoplasty so we have instructed him to try to get health insurance for himself. Coding Level of Care Code New Pt Level 3 (23759) Diagnoses Gynecomastia, male N62
[2024-12-29 15:44] VITALS: BP 115/58; PULSE 59; BMI 27.7
--- OUTSIDE RECORDS SUMMARY | 2024-12-29 16:54 | XMS_ITS | Clinical Summary ---
Author Organization [facility] Address [address] [place] [address] Care Team Providers Care Bolt Man Name Role Phone Unavailable Primary Care Provider [...] Vaccine (1 of 2) 2016 COVID-19 Vaccine (1 - season) 2024
== END 2024-12-29 15:54 | disposition home or self-care (01) ==
LOC: HO.HGS 15:36
PROVIDERS: PCP Internal Medicine; Visit Provider Surgery
DX: N62 Hypertrophy of breast (principal)
CPT/HCPCS: 99203

== ENCOUNTER → 2024-12-29 15:35 | Outpatient (BNVA) | payer SELFPAY | PROVIDERS: PCP Internal Medicine; Visit Provider Surgery | DX: N62 Hypertrophy of breast (principal) | CPT/HCPCS: 99202 ==